=== PATIENT | female | born 1985 | race Caucasian/White ===

== ENCOUNTER 2020-03-05 22:40 | Inpatient (IN) | payer OTHER ==
[2020-03-05] MEDS ORDERED: RINGERS SOLUTION,LACTATED 1,000 ML IV PRN (23:03)
[2020-03-05] MEDS ORDERED: RINGERS SOLUTION,LACTATED 500 ML IV ONE (23:03)
[2020-03-05] MEDS ORDERED: OXYTOCIN 10 UNIT/ML VIAL ONE (23:05)
[2020-03-05] MEDS ORDERED: MISOPROSTOL 0.2 MG TABLET ONE (23:06)
[2020-03-05] MEDS ORDERED: LIDOCAINE 1% INJ-PF (10 MG/ML) 30 ML SDV ONE (23:06)
[2020-03-05] MEDS ORDERED: OXYTOCIN/0.9 % SODIUM CHLORIDE 0 UNIT/0 ML RTUINJ ONE (23:06)
[2020-03-05 23:12] LABS: APPEARANCE,URINE CLEAR; BILIRUBIN,URINE NEGATIVE (NEGATIVE); COLOR,URINE COLORLESS; GLUCOSE, URINE NEGATIVE (NEGATIVE); KETONES,URINE NEGATIVE (NEGATIVE); LEUKOCYTE ESTERASE,URINE NEGATIVE (NEGATIVE); NITRITE,URINE NEGATIVE (NEGATIVE); PROTEIN,URINE NEGATIVE (NEGATIVE); URINE SPECIFIC GRAVITY 1.003; UROBILINOGEN,URINE NEGATIVE mg/dL (<2.0)
[2020-03-05 23:26] LABS: ABSOLUTE EOSINOPHILS # (AUTO) 0.1 10^3/uL (0.0-0.6); ABSOLUTE LYMPHOCYTES (AUTO) 1.6 10^3/uL (0.5-4.7); ABSOLUTE MONOCYTES (AUTO) 0.6 10^3/uL (0.1-1.4); ABSOLUTE NEUT (AUTO) 6.4 10^3/uL (1.7-8.2); BASOPHILS % (AUTO) 0.4 % (0-2); EOSINOPHILS % (AUTO) 1.1 % (0-6); HEMOGLOBIN 11.9 g/dL (12.0-15.5); LYMPHOCYTES % (AUTO) 18.6 % (13-45); MEAN CORPUSCULAR HEMOGLOBIN 31.6 pg (27.0-33.4); MEAN CORPUSCULAR HGB CONC 35.1 g/dL (32.0-36.0); MEAN CORPUSCULAR VOLUME 90 fl (80-97); MONOCYTES % (AUTO) 7.2 % (3-13); PLATELET COUNT 141 10^3/uL (150-450); RED BLOOD COUNT 3.77 10^6/uL (3.72-5.28); RED CELL DISTRIBUTION WIDTH 12.5 % (11.5-14.0); SEGMENTED NEUTROPHILS % (AUTO) 72.7 % (42-78); TOTAL CELLS COUNTED % (AUTO) 100 %; WHITE BLOOD COUNT 8.8 10^3/uL (4.0-10.5)
[2020-03-05 23:37] LABS: URINE AMPHETAMINES SCREEN NEGATIVE; URINE BARBITURATES SCREEN NEGATIVE; URINE BENZODIAZEPINES SCREEN NEGATIVE; URINE COCAINE SCREEN NEGATIVE; URINE MARIJUANA (THC) SCREEN NEGATIVE; URINE METHADONE SCREEN NEGATIVE; URINE PHENCYCLIDINE SCREEN NEGATIVE
[2020-03-06] MEDS ORDERED: OXYTOCIN/0.9 % SODIUM CHLORIDE 30 UNIT/500 ML RTUINJ IV PRN ×2 (04:52→19:29)
[2020-03-06] MEDS ORDERED: NALBUPHINE HCL INJ 10 MG/1 ML AMPULE INJ ONE (06:00)
[2020-03-06] MEDS ORDERED: NALBUPHINE HCL INJ 10 MG/1 ML AMPULE ONE (06:02)
--- NOTE | 2020-03-06 08:29 | Admission Physical ---
Datetime Report Generated by CPN: 03/06/2020 08:29 CURRENT ADMISSION Chief Complaint: Suspected Ruptured Membranes Admit Impression : Term, Intrauterine ; Ruptured Membranes Admit Plan: Admit to Unit ALLERGIES Medication Allergies: No Medication Allergies: No Known Allergies (03/05/2020) Latex: No Latex Allergies OBSTETRICAL HISTORY EDC: 03/12/2020 00:00 : 2 Para: 0 Term: 0 : 0 SAB: 1 IAB: 0 Ectopic: 0 Livin Cesareans: 0 VBACs: 0 Multiple Births: 0 Gestational Diabetes: No Rh Sensitization: No Incompetent Cervix: No TOM: No Infertility: No ART Treatment: No Uterine Anomaly: No IUGR: No Hx Previous C/S: No Macrosomia: No Hx Loss/Stillborn: No PIH: No Hx : No Placenta Previa/Abruption: No Depression/PP Depression: No PTL/PROM: No Post Hemorrhage: No SEE RECORDS Alcohol: No Marijuana : No Cocaine: No Other Illicit Drugs: No Cigarettes: Never Smoker. [id number] MEDICAL HISTORY Diabetes: No Blood Transfusion: No Pulmonary Disease (Asthma, TB): No Breast Disease: No Hypertension: No Home Improvement Contractor Surgery: No Heart Disease: No Hosp/Surgery: No Autoimmune Disorder: No Anesthetic Complications: No Kidney Disease: No Abnormal Pap Smear: No Neuro/Epilepsy: No Psychiatric Disorders: No Other Medical Diseases: No Hepatitis/Liver Disease: No Significant Family History: No Varicosities/Phlebitis: No Trauma/Violence : No Thyroid Dysfunction: No INFECTIOUS HISTORY Gonorrhea: No Genital Herpes: No Chlamydia: No Tuberculosis: No Syphilis: No Hepatitis: No HIV/AIDS Exposure: No Rash or Viral Illness: No HPV: No PHYSICAL EXAM General: Normal HEENT: Normal Neurologic: Normal Thyroid: Normal Heart: Normal Lungs: Normal Breast: Normal Back: Normal Abdomen: Normal Genitourinary Exam: Normal Extremities: Normal DTRs: Normal Pelvic Type: Adequate Vital Signs: Reviewed MEMBRANES Membranes: Ruptured FETUS A EGA: 39.1 Monitoring: External US FHR- Baseline: 125 Variability: Moderate 6-25bpm Accelerations: 15X15 Decelerations: Variable FHR Comments: mild variable decels, otherwise reassuring FHR tracing Admit Comment: Pt presented last night with c/o SROM at 2000. Attending MD last night was Dr Beauchamp. Pt at 39 wks c/o leaking fluid. PNC at [facility], pt was instructed to come to [facility] due to a sterilization machine being broken at [facility]. Pt standing at the bedside rocking her hips. Pitocin infusing. Pt does plan an epidural once contractions become more intense. GBS negative. Pt denies medical issues during her course, besides having a migraine once. Attending MD today is Dr Almaraz, aware of pts status. PLANS FOR LABOR AND DELIVERY Labor and Delivery: None Feeding Preference: Breast Benefit of Breast Feed Discussed: Yes Circumcision: Yes INFORMED CONSENT Assignment: Genia Almaraz MD Signature: with User ID: [email or web address] : with User ID: [email or web address]
[2020-03-06] MEDS ORDERED: FENTANYL/BUPIVACAINE/NS/PF 300 MCG/150 ML RTUINJ EPI ONE (10:09)
[2020-03-06] MEDS ORDERED: EPHEDRINE SULFATE INJ 50 MG/1 ML AMPULE ONE (10:09)
[2020-03-06] MEDS ORDERED: ROPIVACAINE HCL 0.2% INJ/PF (2 MG/ML) 20 ML SDV ONE (10:10)
--- NOTE | 2020-03-06 11:37 | L&D Progress Notes ---
PROGRESS NOTES Datetime Report Generated by CPN: 03/06/2020 11:37 PROGRESS NOTE Impression: Normal Progression of Labor Plan: Continue Present Management; Anticipate Vaginal Delivery Vital Signs : Reviewed Comment: VE per RN pt is 6 cm. Variable decels, position changes encouraged. Anticipate . LAST VAGINAL EXAM-NURSING Nursing Exam Dilitation: 6.0 Nursing Exam Effacement: 80 Nursing Exam Station: -2 Nursing Exam Contractions: unable to determine, patient up to restroom. MEMBRANES Membranes: Ruptured FETUS A FHR - Baseline: 130 Monitoring: External US Variability: Moderate 6-25bpm Decelerations: Variable SIGNATURE SIGNATURE: [id number];[id number] Assignment: Genia Almaraz MD Signature: with User ID: [email or web address] : with User ID: [email or web address]
--- NOTE | 2020-03-06 13:12 | L&D Progress Notes ---
PROGRESS NOTES Datetime Report Generated by CPN: 03/06/2020 13:12 PROGRESS NOTE Impression: Normal Progression of Labor Procedures: Sterile Vag Exam; Amnio Infusion Plan: Anticipate Vaginal Delivery Vital Signs : Reviewed Comment: Variable decels occuring, VE /-2. IUPC placed to run amnioinfusion. Position changes encouraged. Pitocin cut back to 2 mu/min while Amnioinfusion bolus is placed. Will watch FHR closely VAGINAL EXAM Dilatation: 8 Effacement: 90 Station: -2 LAST VAGINAL EXAM-NURSING Nursing Exam Dilitation: 6.0 Nursing Exam Effacement: 80 Nursing Exam Station: -2 Nursing Exam Contractions: unable to determine, patient up to restroom. MEMBRANES Membranes: Ruptured FETUS A FHR - Baseline: 130 Monitoring: External US Variability: Moderate 6-25bpm Decelerations: Variable FHR Category: Category II SIGNATURE SIGNATURE: [id number];[id number] Assignment: Genia Almaraz MD Signature: with User ID: [email or web address] : with User ID: [email or web address]
--- NOTE | 2020-03-06 16:07 | L&D Progress Notes ---
PROGRESS NOTES Datetime Report Generated by CPN: 03/06/2020 16:06 PROGRESS NOTE Impression: Reassuring Heart Rate Procedures: Sterile Vag Exam Plan: Anticipate Vaginal Delivery Vital Signs : Reviewed Comment: Ve per RN pt still 8 cm. Pitoicn was turned off due to variable and early decels. It has since been restarted. Cat 1 FHR tracing. Position changes encouraged. Anticipate VAGINAL EXAM Dilatation: 8 Effacement: 90 Station: -2 LAST VAGINAL EXAM-NURSING Nursing Exam Dilitation: 8.0 Nursing Exam Effacement: 80 Nursing Exam Station: -2 Nursing Exam Contractions: MVU: 100 MEMBRANES Membranes: Ruptured FETUS A FHR - Baseline: 130 Monitoring: External US Variability: Moderate 6-25bpm Decelerations: Variable FHR Category: Category I SIGNATURE SIGNATURE: [id number];[id number] Assignment: Genia Almaraz MD Signature: with User ID: [email or web address] : with User ID: [email or web address]
[2020-03-06] MEDS ORDERED: DIBUCAINE 1% OINTMENT 28 GM TP PRN (19:29)
[2020-03-06] MEDS ORDERED: MEASLES,MUMPS&RUBELLA VACC/PF 0.5 ML VIAL SUBCUT PRN (19:29)
[2020-03-06] MEDS ORDERED: ACETAMINOPHEN WITH CODEINE #3 TABLET PO PRN ×2 (19:29)
[2020-03-06] MEDS ORDERED: ACETAMINOPHEN 650 MG SUPP.RECT PR PRN (19:29)
[2020-03-06] MEDS ORDERED: FAMOTIDINE 20 MG TABLET PO PRN (19:29)
[2020-03-06] MEDS ORDERED: DIPHENHYDRAMINE HCL 25 MG CAPSULE PO PRN (19:29)
[2020-03-06] MEDS ORDERED: VARICELLA VACC/PF (1350 UNIT/0.5 ML) 0.5 ML VIAL SUBCUT PRN (19:29)
[2020-03-06] MEDS ORDERED: MAG HYDROX/AL HYDROX/SIMETH SUSP 30 ML UDCUP PO PRN (19:29)
[2020-03-06] MEDS ORDERED: ACETAMINOPHEN 325 MG TABLET PO PRN (19:29)
[2020-03-06] MEDS ORDERED: ZOLPIDEM TARTRATE 5 MG TABLET PO PRN (19:29)
[2020-03-06] MEDS ORDERED: DIPH/PERTUSS(ACELL)/TETANUS VAC/PF 0.5 ML SYR (>=10YO) IM PRN (19:29)
[2020-03-06] MEDS ORDERED: PSEUDOEPHEDRINE HCL 30 MG TABLET PO PRN (19:29)
[2020-03-06] MEDS ORDERED: MAGNESIUM HYDROXIDE SUSP 30 ML UDCUP PO PRN (19:29)
[2020-03-06] MEDS ORDERED: GLYCERIN/WITCH HAZEL LEAF 1 EACH MED..WIPE TP PRN (19:29)
[2020-03-06] MEDS: IBUPROFEN 800 MG TABLET PO SCH (22:22)
[2020-03-06] MEDS: BENZOCAINE/MENTHOL AEROSOL SPRAY 56 ML TOP PRN (23:50)
[2020-03-07] MEDS: IBUPROFEN 800 MG TABLET PO SCH ×3 (05:08→21:34)
[2020-03-07 08:40] LABS: HEMATOCRIT 30.3 % (36.0-47.0); HEMOGLOBIN 10.5 g/dL (12.0-15.5); MEAN CORPUSCULAR HGB CONC 34.8 g/dL (32.0-36.0); MEAN CORPUSCULAR VOLUME 92 fl (80-97); PLATELET COUNT 119 10^3/uL (150-450); RED BLOOD COUNT 3.29 10^6/uL (3.72-5.28); RED CELL DISTRIBUTION WIDTH 12.5 % (11.5-14.0); WHITE BLOOD COUNT 12.5 10^3/uL (4.0-10.5)
[2020-03-07] MEDS: PRENATAL VITAMIN W DHA CAPSULE PO SCH (10:16)
[2020-03-07] MEDS: DOCUSATE SODIUM 100 MG CAPSULE PO SCH ×2 (10:16→17:44)
[2020-03-07] MEDS: FERROUS SULFATE 325 MG TABLET PO SCH ×2 (10:16→17:44)
[2020-03-07] MEDS: SENNOSIDES/DOCUSATE 8.6-50 MG 1 EACH TABLET PO SCH (10:17)
--- NOTE | 2020-03-07 11:16 | PDOC PROGRESS REPORT ---
Subjective-OB Progress Note for:: 03/07/20 Subjective: Pt doing well, reports light bleeding, reg diet and voiding well. Physical Exam (OB) Vital Signs: Temp Pulse Resp BP Pulse Ox 97.7 F 79 18 97/64 L 99 03/07/20 09:19 03/07/20 07:18 03/07/20 07:18 03/07/20 07:18 03/07/20 07:18 Intake & Output 03/06/20 03/07/20 03/08/20 06:59 06:59 06:59 Weight 69.9 kg - PIH/Pre-Eclampsia Clonus: Negative Headache: Absent Epigastric Pain: No Visual Changes: No - Maternal Morbidity 59. Maternal Morbidity (serious complications experinced by the mother associated with labor and delivery: None of the above - Lochia Lochia Amount: Small 10-25 ml Lochia Color: Rubra/Red - Abdomen Description: Firm, Round Hernia Present: No Fundal Description: Firm, Midline Fundal Height: u/u - u/2 Objective-Diagnostic Laboratory: 03/07/20 08:12 03/07/20 08:12 WBC 12.5 H RBC 3.29 L Hgb 10.5 L Hct 30.3 L MCV 92 MCH 32.0 MCHC 34.8 RDW 12.5 Plt Count 119 L Assessment and Plan(PN) - Assessment and Plan (1) Vaginal delivery Is this a current diagnosis for this admission?: Yes - Time Spent with Patient Time with patient: Less than 15 minutes Medications reviewed and adjusted accordingly: Yes - Disposition Anticipated Discharge Disposition: Home, Self Care Anticipated Discharge Timeframe: within 24 hours
[2020-03-08] MEDS: IBUPROFEN 800 MG TABLET PO SCH ×2 (06:01→13:12)
[2020-03-08 08:34] VITALS: BP 109/66
[2020-03-08] MEDS: PRENATAL VITAMIN W DHA CAPSULE PO SCH (10:31)
[2020-03-08] MEDS: DOCUSATE SODIUM 100 MG CAPSULE PO SCH ×2 (10:31→17:27)
[2020-03-08] MEDS: SENNOSIDES/DOCUSATE 8.6-50 MG 1 EACH TABLET PO SCH (10:31)
[2020-03-08] MEDS: FERROUS SULFATE 325 MG TABLET PO SCH ×2 (10:31→17:27)
--- NOTE | 2020-03-08 12:32 | PDOC DISCHARGE SUMMARY ---
Impression - Admit/DC Date/PCP Admission Date/Primary Care Provider: 03/05/20 23:01 Discharge Date: 03/08/20 - Discharge Diagnosis (1) Active labor at term Is this a current diagnosis for this admission?: Yes (2) SROM (spontaneous rupture of membranes) Is this a current diagnosis for this admission?: Yes (3) Vaginal delivery Is this a current diagnosis for this admission?: Yes - Additional Information Discharge Diet: Regular Discharge Activity: Balance Activity w/Rest, Pelvic Rest Prescriptions: Ibuprofen [Motrin 800 mg Tablet] 800 mg PO Q8HP PRN #60 tablet PRN Reason: Home Medications: Iron 1 tab PO DAILY 03/05/20 Prenat 115/Iron Fum/Folic/Dss [ 19 Tablet] 1 tab PO DAILY 03/05/20 Docusate Sodium [Colace 100 mg Capsule] 100 mg PO BID capsule 03/08/20 Ibuprofen [Motrin 800 mg Tablet] 800 mg PO Q8HP PRN #60 tablet 03/08/20 Hospital Course 59. Maternal Morbidity (serious complications experinced by the mother associated with labor and delivery: None of the above Results Laboratory Results: WBC 12.5 10^3/uL (4.0-10.5) H 03/07/20 08:12 RBC 3.29 10^6/uL (3.72-5.28) L 03/07/20 08:12 Hgb 10.5 g/dL (12.0-15.5) L 03/07/20 08:12 Hct 30.3 % (36.0-47.0) L 03/07/20 08:12 MCV 92 fl (80-97) 03/07/20 08:12 MCH 32.0 pg (27.0-33.4) 03/07/20 08:12 MCHC 34.8 g/dL (32.0-36.0) 03/07/20 08:12 RDW 12.5 % (11.5-14.0) 03/07/20 08:12 Plt Count 119 10^3/uL (150-450) L 03/07/20 08:12 Lymph % (Auto) 18.6 % (13-45) 03/05/20 23:12 [place] % (Auto) 7.2 % (3-13) 03/05/20 23:12 Eos % (Auto) 1.1 % (0-6) 03/05/20 23:12 Baso % (Auto) 0.4 % (0-2) 03/05/20 23:12 Absolute Neuts (auto) 6.4 10^3/uL (1.7-8.2) 03/05/20 23:12 Absolute Lymphs (auto) 1.6 10^3/uL (0.5-4.7) 03/05/20 23:12 Absolute Monos (auto) 0.6 10^3/uL (0.1-1.4) 03/05/20 23:12 Absolute Eos (auto) 0.1 10^3/uL (0.0-0.6) 03/05/20 23:12 Absolute Basos (auto) 0.0 10^3/uL (0.0-0.2) 03/05/20 23:12 Seg Neutrophils % 72.7 % (42-78) 03/05/20 23:12 Urine Color COLORLESS 03/05/20 22:45 Urine Appearance CLEAR 03/05/20 22:45 Urine pH 7.0 (5.0-9.0) 03/05/20 22:45 Ur Specific [place] 1.003 03/05/20 22:45 Urine Protein NEGATIVE mg/dL (NEGATIVE) 03/05/20 22:45 Urine Glucose (UA) NEGATIVE mg/dL (NEGATIVE) 03/05/20 22:45 Urine Ketones NEGATIVE mg/dL (NEGATIVE) 03/05/20 22:45 Urine Blood NEGATIVE (NEGATIVE) 03/05/20 22:45 Urine Nitrite NEGATIVE (NEGATIVE) 03/05/20 22:45 Urine Bilirubin NEGATIVE (NEGATIVE) 03/05/20 22:45 Urine Urobilinogen NEGATIVE mg/dL (<2.0) 03/05/20 22:45 Ur Leukocyte Esterase NEGATIVE (NEGATIVE) 03/05/20 22:45 Urine Ascorbic Acid NEGATIVE (NEGATIVE) 03/05/20 22:45 Membranes Rupture POSITIVE (NEGATIVE) H 03/05/20 22:50 Urine Opiates Screen NEGATIVE 03/05/20 22:45 Urine Methadone Screen NEGATIVE 03/05/20 22:45 Ur Barbiturates Screen NEGATIVE 03/05/20 22:45 Ur Phencyclidine Scrn NEGATIVE 03/05/20 22:45 Ur Amphetamines Screen NEGATIVE 03/05/20 22:45 U Benzodiazepines Scrn NEGATIVE 03/05/20 22:45 Urine Cocaine Screen NEGATIVE 03/05/20 22:45 U Marijuana (THC) Screen NEGATIVE 03/05/20 22:45 RPR NONREACTIVE (NONREACTIVE) 03/05/20 23:12 Blood Type A POSITIVE 03/05/20 23:12 Antibody Screen NEGATIVE 03/05/20 23:12 Plan Plan of Treatment: follow up in 4 weeks at [facility] for post check
[2020-03-08] MEDS: BENZOCAINE/MENTHOL AEROSOL SPRAY 56 ML TOP PRN (13:13)
--- NOTE | 2020-03-11 14:18 | Delivery Summary ---
Del Sum A-C Datetime Report Generated by CPN: 03/11/2020 14:18 DELIVERY PERSONNEL DELIVERY PERSONNEL: [id number] Delivery Doctor:: Genia Almaraz MD RANGE TECHNICIAN:: Petr Bingham CRNA Labor and Delivery Nurse:: Helena Harris RN Nursery Nurse:: Elaina Freedman RN Legal Transcriptionist/DESIGN ENGINEER MARINE EQUIPMENT: Rekha Acuña, OUTSIDE SALES ACCOUNT MANAGER MATERNAL INFORMATION Delivery Anesthesia: Epidural Medications After Delivery: Pitocin 30 Units in 500ml NS/D5W Estimated Blood Loss (ml): 250 Maternal Complications: None Provider Comments: Called to patients room as she was complete and +2 station. Pushed through several contractions then delivered a viable male . After delivery of the head, the shoulders and rest of the body followed. The right hand was at the level of the neck and delivered in this fashion. The baby was vigorous and cord clamping was delayed for 30 seconds. After cord doubly clamped and cut, infant placed skin to skin. Both Mother and stable. LABOR SUMMARY EDC: 03/12/2020 00:00 No. Babies in Womb: 1 Attempted: No Labor Anesthesia: Epidural LABOR INFORMATION Reason for Induction: Not Applicable Onset of Labor: 03/06/2020 10:00 Complete Dilatation: 03/06/2020 18:21 Oxytocin: Augmentation Group B Beta Strep: Negative Antibiotics # of Doses: 0 Name of Antibiotic Given: N/A Steroids Given: None Reason Steroids Not Administered: Not Applicable MEMBRANES Membranes Rupture Method: Spontaneous Rupture of Membranes: 03/05/2020 20:00 Length of Rupture (hr): 22.88 Amniotic Fluid Color: Clear Amniotic Fluid Amount: Moderate Amniotic Fluid Odor: Normal STAGES OF LABOR Stage 1 hr: 8 Stage 1 min: 21 Stage 2 hr: 0 Stage 2 min: 32 Stage 3 hr: 0 Stage 3 min: 3 Total Time in Labor hr: 8 Total Time in Labor min: 56 VAGINAL DELIVERY Episiotomy: None Laceration #1: Perineal Laceration Extension #1: First Degree Other Laceration: left labial laceration Laceration Repair: Yes Laceration Repair Note: Repaired both with 3-0 chromic in a running fashion Sponge Count Correct: N/A; Yes Sharps Count Correct: Yes CSECTION DELIVERY Primary Indication: N/A CSection Incision: N/A BABY A INFORMATION Delivery Date/Time: 03/06/2020 18:53 Method of Delivery: Vaginal Nurse Controlled Delivery: No Born in Route : No : N/A : N/A Forceps: N/A Vacuum Extraction: N/A Shoulder Dystocia : No PRESENTATION/POSITION BABY A Presentation: Cephalic Cephalic Presentation: Vertex Vertex Position: Right Occipital Anterior Breech Presentation: N/A PLACENTA INFORMATION BABY A Placenta Delivery Time : 03/06/2020 18:56 Placenta Method of Delivery: Spontaneous Placenta Status: Delivered SCORES BABY A Heart Rate 1 min: >100 bpm Resp Effort 1 min: Good Cry Reflex Irritability 1 min: Cough or Sneeze or Pulls Away Muscle Tone 1 min: Active Motion Color 1 min: Body [place], Extremities Blue Resuscitation Effort 1 min: Tactile Stimulation SCORE 1 MIN: 9 Heart Rate 5 min: >100 bpm Resp Effort 5 min: Good Cry Reflex Irritability 5 min: Cough or Sneeze or Pulls Away Muscle Tone 5 min: Active Motion Color 5 min: Body [place], Extremities Blue Resuscitation Effort 5 min: Tactile Stimulation SCORE 5 MIN: 9 INFANT INFORMATION BABY A Gestational Age at Delivery: 39.1 Gestational Status: Full Term- 39- 40.6 Weeks Infant Outcome : Liveborn Infant Condition : Stable Infant Sex: Male IDENTIFICATION BABY A Infant Verification Date/Time: 03/06/2020 20:41 ID Band Number: [id number] Mother's Name Verified: Yes Infant RN Verifying Infant: D Bellavance RN Additional Verifying Personnel: R [facility] RN WEIGHT/LENGTH BABY A Birthweight (gm): 3240 Weight (lb): 7 Infant Weight (oz): 2 Infant Length (in): 20.50 Infant Length (cm): 52.07 CORD INFORMATION BABY A No. Cord Vessels: 3 Nuchal Cord : N/A Cord Blood Taken: Yes-For Storage (Mom's Blood type +) Infant Suction: Mouth; Nose Suction: None ASSESSMENT BABY A Complications: None Physical Findings at Delivery: Within Normal Limits Infant Respirations: Appears Normal Skin to Skin: Yes Academic Hospitalist/ALS Called : No Infant Care By: A Freedman RN Transferred To: Remains with Mother BABY B INFORMATION : N/A SIGNATURES Signature: with User ID: [email or web address] : with User ID: [email or web address]
== END 2020-03-08 18:25 | disposition home or self-care (01) | DRG 807 ==
LOC: LC 22:40 → LR 23:01 → 2S 03-06 21:50
PROVIDERS: ADMIT Obstetrics & Gynecology Gynecology; ATTEND Obstetrics & Gynecology
PROC: 10E0XZZ Delivery of Products of Conception, External Approach (ICD-10-PCS; principal; 2020-03-06)
PROC: 0HQ9XZZ Repair Perineum Skin, External Approach (ICD-10-PCS; 2020-03-06)
DX: O76 Abnormality in fetal heart rate and rhythm complicating labor and delivery (principal); Z37.0 Single live birth; O70.0 First degree perineal laceration during delivery; Z3A.39 39 weeks gestation of pregnancy
CPT/HCPCS: 1967; 36415; 80307; 81005; 84112; 85025; 85027; 86592; 86850; 86900; 86901; J2300; J2590; J2795; J3010; J3490